=== PATIENT | female | born 1960 | race Caucasian/White ===

== ENCOUNTER 2019-01-09 13:09 | Inpatient (IN) | payer BC ==
[~2019-01-09] VITALS: Ht 160 cm; Wt 96.6 kg
[2019-01-09 13:28] VITALS: BP 127/72
[2019-01-09 14:40] LABS: BASOPHILS % (AUTO) 0.4 % (0.0-2.0); EOSINOPHILS # (AUTO) 0.1 K/uL (0-0.4); EOSINOPHILS % (AUTO) 0.9 % (0.0-4.0); HEMOGLOBIN 10.9 g/dL (12.0-16.0); LYMPHOCYTES # (AUTO) 0.7 K/uL (2.5-16.5); LYMPHOCYTES % (AUTO) 12.5 % (20.5-51.1); MEAN CORPUSCULAR HEMOGLOBIN 41 pg (27-31); MEAN CORPUSCULAR HGB CONC 34 g/dL (33-37); MEAN CORPUSCULAR VOLUME 118.8 fL (80-94); MONOCYTES # (AUTO) 0.7 K/uL (0.8-1.0); MONOCYTES % (AUTO) 12.3 % (1.7-9.3); NEUTROPHILS # (AUTO) 4.4 K/uL (1.8-7.7); NEUTROPHILS % (AUTO) 73.9 % (42.2-75.2); PLATELET COUNT (AUTO) 104 K/uL (140-450); RED CELL DISTRIBUTION WIDTH 15.6 % (11.6-13.7)
[2019-01-09 14:54] LABS: PROTHROMBIN TIME 20.9 secs (10.8-13.4)
[2019-01-09 15:01] LABS: ALBUMIN 1.6 g/dL (3.4-5.0); ANION GAP 15.3 (8-16); CARBON DIOXIDE 25.2 mmol/L (21-32); CREATININE 2.1 mg/dL (0.6-1.3); POTASSIUM 4.5 mmol/L (3.5-5.1); TOTAL BILIRUBIN 9.4 mg/dL (0.0-1.0)
[2019-01-09] MEDS ORDERED: NACL 0.9% 1,000 ML IV ONE (15:50)
[2019-01-09] MEDS ORDERED: LORazepam 2 MG/ML VIAL IVP ONE (18:55)
[2019-01-09] MEDS ORDERED: SPIRONOLACTONE 50 MG TAB PO ONE (19:10)
[2019-01-09] MEDS ORDERED: MULTIVITAMIN-12 10 ML, THIAMINE 100 MG, FOLIC ACID 1 MG, MAGNESIUM SULFATE 50% 2,000 MG... IV ONE ×5 (19:10)
[2019-01-09] MEDS ORDERED: FUROSEMIDE 40 MG/4 ML VIAL IVP ONE (19:10)
[2019-01-09 19:30] VITALS: BP 132/51
[2019-01-09 20:19] LABS: FREE T4 (FREE THYROXINE) 2.2 ng/dL (0.76-1.46); PHOSPHORUS 5.2 mg/dL (2.5-4.9); THYROID STIMULATING HORMONE 6.19 uIU/mL (0.34-3.74)
[2019-01-09] MEDS: DOCUSATE SODIUM 100 MG GELCAP PO SCH (20:36)
[2019-01-09] MEDS ORDERED: LORazepam 1 MG TAB PO SCH (22:15)
[2019-01-09] MEDS ORDERED: FOLIC ACID 1 MG TAB PO SCH (22:15)
[2019-01-09 22:49] LABS: APPEARANCE,URINE SL CLOUDY (CLEAR); BILIRUBIN,URINE 2+ (NEGATIVE); BLOOD, URINE TRACE-L (NEGATIVE); COLOR,URINE BROWN (YELLOW); LEUKOCYTE ESTERASE ,URINE TRACE (NEGATIVE); NITRITE, URINE NEGATIVE (NEGATIVE); PH,URINE 5.5 (5.0-9.0); UGLUCOSE NEGATIVE (NEGATIVE)
[2019-01-09 22:59] LABS: BARBITURATE, URINE NEG. ng/ml (NEG <=200); BENZODIAZEPINE, URINE NEG. ng/mL (NEG <=200); CANNABINOID, URINE NEG. ng/mL (NEG <=50); COCAINE, URINE NEG. ng/mL (NEG <=300); OPIATE, URINE NEG. ng/mL (NEG <=2000); PHENCYCLIDINE SCREEN,URINE NEG. ng/mL (NEG <=25)
[2019-01-09 23:27] LABS: RBC,URINE 0-5 /HPF (0-5)
[2019-01-09 23:28] LABS: COARSE GRANULAR CASTS,URINE 0-10 /LPF (None Seen); HYALINE CASTS, URINE 0-10 /LPF (None Seen)
[2019-01-09 23:29] LABS: ACETAMINOPHEN < 0.5 ug/ml (10-30); SALICYLATE < 2.8 mg/dL (2.8-20.0)
[2019-01-10] VITALS: BP 110/62
[2019-01-10] MEDS ORDERED: METHOCARBAMOL 500 MG TAB PO ONE (01:05)
[2019-01-10] MEDS ORDERED: CAPSAICIN 0.025% CRE 60 GM TUBE TP ONE (01:05)
[2019-01-10 04:00] VITALS: BP 128/44
[2019-01-10] MEDS ORDERED: LORazepam 1 MG TAB PO SCH (05:00)
[2019-01-10 07:23] LABS: BASOPHILS % (AUTO) 0.5 % (0.0-2.0); EOSINOPHILS # (AUTO) 0.1 K/uL (0-0.4); EOSINOPHILS % (AUTO) 2.3 % (0.0-4.0); HEMATOCRIT 30.5 % (36-48); HEMOGLOBIN 10.5 g/dL (12.0-16.0); LYMPHOCYTES # (AUTO) 0.9 K/uL (2.5-16.5); LYMPHOCYTES % (AUTO) 15.9 % (20.5-51.1); MEAN CORPUSCULAR HEMOGLOBIN 41 pg (27-31); MEAN CORPUSCULAR HGB CONC 34 g/dL (33-37); MEAN CORPUSCULAR VOLUME 118.9 fL (80-94); MONOCYTES # (AUTO) 0.7 K/uL (0.8-1.0); MONOCYTES % (AUTO) 13.5 % (1.7-9.3); NEUTROPHILS # (AUTO) 3.6 K/uL (1.8-7.7); NEUTROPHILS % (AUTO) 67.8 % (42.2-75.2); PLATELET COUNT (AUTO) 90 K/uL (140-450); RED BLOOD CELL COUNT(AUTO) 2.56 MIL/uL (4.20-5.40); RED CELL DISTRIBUTION WIDTH 15.7 % (11.6-13.7); WHITE BLOOD COUNT (AUTO) 5.4 K/uL (4.8-10.8)
[2019-01-10 07:46] LABS: ALBUMIN 1.5 g/dL (3.4-5.0); ANION GAP 14.6 (8-16); POTASSIUM 4.6 mmol/L (3.5-5.1); TOTAL BILIRUBIN 9.6 mg/dL (0.0-1.0)
[2019-01-10 08:15] VITALS: BP 94/58
[2019-01-10 08:20] LABS: MAGNESIUM 2.1 mg/dL (1.8-2.4); PHOSPHORUS 5.3 mg/dL (2.5-4.9)
[2019-01-10 09:34] LABS: CHOL/HDL RATIO 4.8 (1-4.5)
[2019-01-10] MEDS: FOLIC ACID 1 MG TAB PO SCH (10:02)
[2019-01-10] MEDS: DOCUSATE SODIUM 100 MG GELCAP PO SCH ×2 (10:02→21:11)
[2019-01-10] MEDS: MULTIVITAMIN 1 TAB PO SCH (10:03)
[2019-01-10] MEDS ORDERED: THIAMINE 100 MG TAB PO SCH (10:30)
[2019-01-10] MEDS ORDERED: ALBUMIN HUMAN 25% 100 ML IV SCH (12:15)
[2019-01-10 12:25] VITALS: BP 96/58
[2019-01-10] MEDS ORDERED: PHYTONADIONE 10 MG in NACL 0.9% 50 ML IV SCH (12:30)
[2019-01-10] MEDS ORDERED: FUROSEMIDE 20 MG/2 ML VIAL IVP SCH (13:00)
[2019-01-10] MEDS ORDERED: LORazepam 2 MG/ML VIAL IM/IVP PRN (14:00)
[2019-01-10] MEDS ORDERED: CALCIUM ACETATE 667 MG TAB PO SCH (14:00)
[2019-01-10 16:34] VITALS: BP 93/37
[2019-01-10 20:00] VITALS: BP 104/47
[2019-01-10] MEDS ORDERED: ALBUMIN HUMAN 25% 100 ML IV ONE (22:02)
[2019-01-11] VITALS: BP 108/49
[2019-01-11] MEDS: OCTREOTIDE ACETATE 1.25 MG in NACL 0.9% 250 ML IV SCH ×2 (00:28→15:06)
[2019-01-11] MEDS ORDERED: MORPHINE SULFATE 2 MG/ML SYR IVP PRN (02:55)
[2019-01-11] MEDS ORDERED: MORPHINE SULFATE 2 MG/ML SYR ONE (03:08)
[2019-01-11 04:00] VITALS: BP 103/57
[2019-01-11 08:25] VITALS: BP 114/62
[2019-01-11] MEDS ORDERED: PANTOPRAZOLE 40 MG TABEC PO SCH (09:00)
[2019-01-11] MEDS: THIAMINE 100 MG TAB PO SCH (09:05)
[2019-01-11] MEDS: MULTIVITAMIN 1 TAB PO SCH (09:05)
[2019-01-11] MEDS: DOCUSATE SODIUM 100 MG GELCAP PO SCH (09:05)
[2019-01-11] MEDS: FOLIC ACID 1 MG TAB PO SCH (09:06)
[2019-01-11 12:30] VITALS: BP 106/74
[2019-01-11 13:23] LABS: BASOPHILS % (AUTO) 0.6 % (0.0-2.0); EOSINOPHILS # (AUTO) 0.1 K/uL (0-0.4); EOSINOPHILS % (AUTO) 2.4 % (0.0-4.0); HEMATOCRIT 33.1 % (36-48); HEMOGLOBIN 11.3 g/dL (12.0-16.0); LYMPHOCYTES # (AUTO) 0.8 K/uL (2.5-16.5); LYMPHOCYTES % (AUTO) 17.6 % (20.5-51.1); MEAN CORPUSCULAR HEMOGLOBIN 41 pg (27-31); MEAN CORPUSCULAR HGB CONC 34 g/dL (33-37); MEAN CORPUSCULAR VOLUME 119.9 fL (80-94); MONOCYTES # (AUTO) 0.5 K/uL (0.8-1.0); MONOCYTES % (AUTO) 11.5 % (1.7-9.3); NEUTROPHILS # (AUTO) 2.9 K/uL (1.8-7.7); NEUTROPHILS % (AUTO) 67.9 % (42.2-75.2); PLATELET COUNT (AUTO) 84 K/uL (140-450); RED BLOOD CELL COUNT(AUTO) 2.76 MIL/uL (4.20-5.40); RED CELL DISTRIBUTION WIDTH 15.7 % (11.6-13.7); WHITE BLOOD COUNT (AUTO) 4.3 K/uL (4.8-10.8)
[2019-01-11 13:37] LABS: PROTHROMBIN TIME 20.9 secs (10.8-13.4)
[2019-01-11 13:50] LABS: ALBUMIN 1.9 g/dL (3.4-5.0); ANION GAP 14.9 (8-16); CARBON DIOXIDE 22.9 mmol/L (21-32); CREATININE 1.7 mg/dL (0.6-1.3); PHOSPHORUS 5.2 mg/dL (2.5-4.9); POTASSIUM 4.8 mmol/L (3.5-5.1); TOTAL BILIRUBIN 11.7 mg/dL (0.0-1.0)
[2019-01-11] MEDS ORDERED: FUROSEMIDE 20 MG/2 ML VIAL IVP SCH (14:04)
[2019-01-11] MEDS ORDERED: LACTULOSE 20 GM/30 ML UDC PO SCH (14:04)
[2019-01-11 16:35] VITALS: BP 109/55
[2019-01-11] MEDS ORDERED: ALBUMIN HUMAN 25% 100 ML IV ONE (18:45)
[2019-01-11 20:00] VITALS: BP 118/58
[2019-01-11] MEDS ORDERED: PANTOPRAZOLE 40 MG INJ VIAL IVP SCH (21:00)
[2019-01-12] VITALS: BP 120/59
[2019-01-12] MEDS: MORPHINE SULFATE 2 MG/ML SYR IVP PRN ×2 (02:55→17:04)
[2019-01-12 04:00] VITALS: BP 122/68
[2019-01-12] MEDS: LANSOPRAZOLE 30 MG CAPDR PO SCH (05:41)
[2019-01-12 08:00] VITALS: BP 128/66
[2019-01-12] MEDS ORDERED: CALCIUM ACETATE 667 MG TAB PO SCH (08:00)
[2019-01-12 08:23] LABS: BASOPHILS % (AUTO) 0.7 % (0.0-2.0); EOSINOPHILS # (AUTO) 0.1 K/uL (0-0.4); EOSINOPHILS % (AUTO) 2.8 % (0.0-4.0); HEMATOCRIT 25.1 % (36-48); HEMOGLOBIN 8.7 g/dL (12.0-16.0); LYMPHOCYTES # (AUTO) 0.9 K/uL (2.5-16.5); LYMPHOCYTES % (AUTO) 17.8 % (20.5-51.1); MEAN CORPUSCULAR HEMOGLOBIN 41 pg (27-31); MEAN CORPUSCULAR HGB CONC 35 g/dL (33-37); MEAN CORPUSCULAR VOLUME 119.2 fL (80-94); MONOCYTES # (AUTO) 0.8 K/uL (0.8-1.0); MONOCYTES % (AUTO) 14.7 % (1.7-9.3); NEUTROPHILS # (AUTO) 3.3 K/uL (1.8-7.7); PLATELET COUNT (AUTO) 82 K/uL (140-450); RED CELL DISTRIBUTION WIDTH 15.1 % (11.6-13.7); WHITE BLOOD COUNT (AUTO) 5.1 K/uL (4.8-10.8)
[2019-01-12 08:41] LABS: TRANSFERRIN 115 mg/dL (200-370)
[2019-01-12 08:45] LABS: PROTHROMBIN TIME 22.3 secs (10.8-13.4)
[2019-01-12 08:50] LABS: MAGNESIUM 1.9 mg/dL (1.8-2.4); PHOSPHORUS 4.7 mg/dL (2.5-4.9)
[2019-01-12 08:57] LABS: ANION GAP 15.7 (8-16); CARBON DIOXIDE 23.8 mmol/L (21-32); CREATININE 1.4 mg/dL (0.6-1.3); POTASSIUM 4.5 mmol/L (3.5-5.1)
[2019-01-12] MEDS: THIAMINE 100 MG TAB PO SCH (09:00)
[2019-01-12] MEDS: MULTIVITAMIN 1 TAB PO SCH (09:00)
[2019-01-12] MEDS: FOLIC ACID 1 MG TAB PO SCH (09:00)
[2019-01-12] MEDS ORDERED: FUROSEMIDE 40 MG/4 ML VIAL IVP SCH (09:00)
[2019-01-12] MEDS: LACTULOSE 20 GM/30 ML UDC PO SCH (09:00)
[2019-01-12 09:42] LABS: FERRITIN 960 ng/mL (15 - 150)
[2019-01-12] MEDS ORDERED: diphenhydrAMINE 50 MG/ML VIAL IVP SCH (10:30)
[2019-01-12] MEDS ORDERED: ACETAMINOPHEN 650 MG/20.3 ML UDC PO SCH (10:30)
[2019-01-12 12:00] VITALS: BP 111/48
[2019-01-12 15:20] LABS: PROTHROMBIN TIME 22.1 secs (10.8-13.4)
[2019-01-12 16:00] VITALS: BP 96/49
[2019-01-12] MEDS: ONDANSETRON 4 MG/2 ML VIAL IVP PRN (16:44)
[2019-01-12] MEDS ORDERED: OCTREOTIDE ACETATE 1.25 MG in NACL 0.9% 250 ML IV SCH (18:30)
[2019-01-12] MEDS ORDERED: PHYTONADIONE 10 MG in NACL 0.9% 50 ML IV SCH (18:30)
[2019-01-12 19:19] LABS: HEMATOCRIT 24.4 % (36-48); HEMOGLOBIN 8.4 g/dL (12.0-16.0)
[2019-01-12 20:40] VITALS: BP 118/58
[2019-01-13 00:40] VITALS: BP 110/60
[2019-01-13 04:50] VITALS: BP 128/73
[2019-01-13] MEDS: MORPHINE SULFATE 2 MG/ML SYR IVP PRN ×2 (05:07→19:52)
[2019-01-13] MEDS: LANSOPRAZOLE 30 MG CAPDR PO SCH (06:09)
[2019-01-13 08:00] VITALS: BP 117/68
[2019-01-13] MEDS: FOLIC ACID 1 MG TAB PO SCH (09:07)
[2019-01-13] MEDS: LACTULOSE 20 GM/30 ML UDC PO SCH ×2 (09:07→20:10)
[2019-01-13] MEDS: THIAMINE 100 MG TAB PO SCH (09:07)
[2019-01-13] MEDS: MULTIVITAMIN 1 TAB PO SCH (09:07)
[2019-01-13 09:22] LABS: BASOPHILS % (AUTO) 0.3 % (0.0-2.0); EOSINOPHILS # (AUTO) 0.1 K/uL (0-0.4); EOSINOPHILS % (AUTO) 2.2 % (0.0-4.0); HEMATOCRIT 27.5 % (36-48); HEMOGLOBIN 9.5 g/dL (12.0-16.0); LYMPHOCYTES # (AUTO) 0.6 K/uL (2.5-16.5); LYMPHOCYTES % (AUTO) 13.2 % (20.5-51.1); MEAN CORPUSCULAR HEMOGLOBIN 41 pg (27-31); MEAN CORPUSCULAR HGB CONC 35 g/dL (33-37); MEAN CORPUSCULAR VOLUME 118.6 fL (80-94); MONOCYTES # (AUTO) 0.7 K/uL (0.8-1.0); MONOCYTES % (AUTO) 14.1 % (1.7-9.3); NEUTROPHILS # (AUTO) 3.4 K/uL (1.8-7.7); NEUTROPHILS % (AUTO) 70.2 % (42.2-75.2); PLATELET COUNT (AUTO) 77 K/uL (140-450); RED BLOOD CELL COUNT(AUTO) 2.32 MIL/uL (4.20-5.40); RED CELL DISTRIBUTION WIDTH 15.2 % (11.6-13.7); WHITE BLOOD COUNT (AUTO) 4.9 K/uL (4.8-10.8)
[2019-01-13 09:55] LABS: PROTHROMBIN TIME 20.6 secs (10.8-13.4)
[2019-01-13 11:44] LABS: ANION GAP 11.5 (8-16); CARBON DIOXIDE 25.8 mmol/L (21-32); POTASSIUM 4.3 mmol/L (3.5-5.1)
[2019-01-13 11:45] LABS: CREATININE 1.4 mg/dL (0.6-1.3); TOTAL BILIRUBIN 10.8 mg/dL (0.0-1.0)
[2019-01-13 11:46] LABS: ALBUMIN 1.8 g/dL (3.4-5.0); MAGNESIUM 1.7 mg/dL (1.8-2.4)
[2019-01-13 12:00] VITALS: BP 116/63
[2019-01-13] MEDS ORDERED: diphenhydrAMINE 50 MG/ML VIAL ONE (13:51)
[2019-01-13] MEDS ORDERED: MIDAZOLAM 2 MG/2 ML VIAL ONE (13:51)
[2019-01-13] MEDS ORDERED: fentaNYL 0.05 MG/ML VIAL ONE (13:51)
[2019-01-13] MEDS ORDERED: fentaNYL 0.05 MG/ML VIAL IVP ONE (14:20)
[2019-01-13] MEDS ORDERED: MIDAZOLAM 2 MG/2 ML VIAL IVP ONE (14:20)
[2019-01-13] MEDS ORDERED: FUROSEMIDE 40 MG/4 ML VIAL IVP SCH (14:39)
[2019-01-13] MEDS ORDERED: PHYTONADIONE 10 MG/ML AMP SUBQ SCH (15:00)
[2019-01-13 16:00] VITALS: BP 118/63
[2019-01-13] MEDS: METOCLOPRAMIDE 10 MG TAB PO SCH (17:27)
[2019-01-13] MEDS: ONDANSETRON 4 MG/2 ML VIAL IVP PRN (19:51)
[2019-01-13 20:00] VITALS: BP 126/73
[2019-01-13] MEDS ORDERED: MAGNESIUM OXIDE 400 MG TAB PO ONE (21:00)
[2019-01-14] VITALS: BP 106/55
[2019-01-14 00:10] LABS: FOLIC ACID 7.4 ng/mL (>3.0); HEPATITIS A ANTIBODY IGM Negative (Negative); HEPATITIS B CORE AB TOTAL Negative (Negative); HEPATITIS B SURFACE ANTIBODY Non Reactive (.); HEPATITIS B SURFACE ANTIGEN Negative (Negative)
[2019-01-14 04:00] VITALS: BP 125/75
[2019-01-14] MEDS: METOCLOPRAMIDE 10 MG TAB PO SCH ×3 (06:34→15:39)
[2019-01-14] MEDS: LANSOPRAZOLE 30 MG CAPDR PO SCH (06:34)
[2019-01-14 08:00] VITALS: BP 122/67
[2019-01-14] MEDS: FUROSEMIDE 40 MG/4 ML VIAL IVP SCH (08:55)
[2019-01-14] MEDS: LACTULOSE 20 GM/30 ML UDC PO SCH ×2 (08:55→20:44)
[2019-01-14] MEDS: THIAMINE 100 MG TAB PO SCH (08:56)
[2019-01-14] MEDS: FOLIC ACID 1 MG TAB PO SCH (08:56)
[2019-01-14] MEDS: MULTIVITAMIN 1 TAB PO SCH (08:56)
[2019-01-14] MEDS: SPIRONOLACTONE 50 MG TAB PO SCH (08:56)
[2019-01-14] MEDS ORDERED: ONDA2SOL45 IVP (09:25)
[2019-01-14] MEDS ORDERED: LANS30EC68 PO (09:25)
[2019-01-14] MEDS ORDERED: MULT-405 PO (09:25)
[2019-01-14] MEDS ORDERED: LACT10SO11 PO (09:25)
[2019-01-14] MEDS ORDERED: THIA-34 PO (09:25)
[2019-01-14] MEDS ORDERED: SPIR50TA PO (09:25)
[2019-01-14] MEDS ORDERED: LAS20I IVP (09:25)
[2019-01-14] MEDS ORDERED: METO10TA98 PO (09:25)
[2019-01-14] MEDS ORDERED: FOLI1TAB90 PO (09:25)
[2019-01-14 10:41] LABS: PROTHROMBIN TIME 20.2 secs (10.8-13.4)
[2019-01-14 10:47] LABS: ANION GAP 13.1 (8-16); CREATININE 1.3 mg/dL (0.6-1.3); POTASSIUM 4.1 mmol/L (3.5-5.1)
[2019-01-14 11:02] LABS: BASOPHILS % (AUTO) 0.4 % (0.0-2.0); EOSINOPHILS # (AUTO) 0.1 K/uL (0-0.4); HEMATOCRIT 27.4 % (36-48); HEMOGLOBIN 9.5 g/dL (12.0-16.0); LYMPHOCYTES # (AUTO) 0.7 K/uL (2.5-16.5); LYMPHOCYTES % (AUTO) 11.6 % (20.5-51.1); MEAN CORPUSCULAR HEMOGLOBIN 41 pg (27-31); MEAN CORPUSCULAR HGB CONC 35 g/dL (33-37); MEAN CORPUSCULAR VOLUME 118.8 fL (80-94); MONOCYTES # (AUTO) 0.9 K/uL (0.8-1.0); NEUTROPHILS # (AUTO) 4.6 K/uL (1.8-7.7); PLATELET COUNT (AUTO) 81 K/uL (140-450); RED BLOOD CELL COUNT(AUTO) 2.31 MIL/uL (4.20-5.40); RED CELL DISTRIBUTION WIDTH 14.8 % (11.6-13.7); WHITE BLOOD COUNT (AUTO) 6.3 K/uL (4.8-10.8)
[2019-01-14 12:00] VITALS: BP 129/76
[2019-01-14] MEDS ORDERED: predniSONE 20 MG TAB PO SCH (12:00)
[2019-01-14] MEDS: PENTOXIFYLLINE 400 MG TABER PO SCH ×2 (12:15→17:02)
[2019-01-14] MEDS: MORPHINE SULFATE 2 MG/ML SYR IVP PRN ×2 (15:41→22:54)
[2019-01-14 16:00] VITALS: BP 134/71
[2019-01-14 16:02] LABS: MAGNESIUM 1.9 mg/dL (1.8-2.4); PHOSPHORUS 4.3 mg/dL (2.5-4.9)
[2019-01-14 20:00] VITALS: BP_SYST 124; BP_DIAS 64; BP_DIAS 70
[2019-01-14] MEDS: predniSONE 20 MG TAB PO SCH (20:39)
[2019-01-15] VITALS: BP 124/64
[2019-01-15 04:00] VITALS: BP 130/75
[2019-01-15] MEDS: MORPHINE SULFATE 2 MG/ML SYR IVP PRN ×3 (05:19→22:03)
[2019-01-15] MEDS: LANSOPRAZOLE 30 MG CAPDR PO SCH (06:18)
[2019-01-15 08:00] VITALS: BP 139/74
[2019-01-15] MEDS: PENTOXIFYLLINE 400 MG TABER PO SCH ×3 (08:00→16:09)
[2019-01-15] MEDS: FUROSEMIDE 40 MG/4 ML VIAL IVP SCH (08:34)
[2019-01-15] MEDS: METOCLOPRAMIDE 10 MG TAB PO SCH ×3 (08:35→16:09)
[2019-01-15] MEDS: SPIRONOLACTONE 50 MG TAB PO SCH (08:35)
[2019-01-15] MEDS: predniSONE 20 MG TAB PO SCH ×2 (08:36→20:51)
[2019-01-15] MEDS: LACTULOSE 20 GM/30 ML UDC PO SCH (09:00)
[2019-01-15] MEDS: FOLIC ACID 1 MG TAB PO SCH (09:00)
[2019-01-15] MEDS: LACTOBACILLUS RHAMNOSUS GG 1 EACH CAP PO SCH (09:00)
[2019-01-15] MEDS: THIAMINE 100 MG TAB PO SCH (09:00)
[2019-01-15] MEDS: MULTIVITAMIN 1 TAB PO SCH (09:00)
[2019-01-15 12:00] VITALS: BP 141/75
[2019-01-15 12:04] LABS: BASOPHILS % (AUTO) 0.1 % (0.0-2.0); HEMATOCRIT 28.3 % (36-48); HEMOGLOBIN 9.7 g/dL (12.0-16.0); LYMPHOCYTES # (AUTO) 0.4 K/uL (2.5-16.5); MEAN CORPUSCULAR HEMOGLOBIN 41 pg (27-31); MEAN CORPUSCULAR HGB CONC 34 g/dL (33-37); MEAN CORPUSCULAR VOLUME 118.4 fL (80-94); MONOCYTES # (AUTO) 0.5 K/uL (0.8-1.0); MONOCYTES % (AUTO) 8.1 % (1.7-9.3); NEUTROPHILS # (AUTO) 5.7 K/uL (1.8-7.7); PLATELET COUNT (AUTO) 81 K/uL (140-450); RED BLOOD CELL COUNT(AUTO) 2.39 MIL/uL (4.20-5.40); RED CELL DISTRIBUTION WIDTH 14.9 % (11.6-13.7); WHITE BLOOD COUNT (AUTO) 6.7 K/uL (4.8-10.8)
[2019-01-15 12:17] LABS: ANION GAP 17.1 (8-16); CARBON DIOXIDE 24.9 mmol/L (21-32); CREATININE 1.3 mg/dL (0.6-1.3); MAGNESIUM 1.7 mg/dL (1.8-2.4); PHOSPHORUS 4.5 mg/dL (2.5-4.9); TOTAL BILIRUBIN 9.8 mg/dL (0.0-1.0)
[2019-01-15 12:33] LABS: PROTHROMBIN TIME 20.7 secs (10.8-13.4)
[2019-01-15 13:20] LABS: LYMPHOCYTES % (AUTO) 5.9 % (20.5-51.1); NEUTROPHILS % (AUTO) 85.9 % (42.2-75.2)
[2019-01-15] MEDS ORDERED: MAGNESIUM OXIDE 400 MG TAB PO ONE (14:35)
[2019-01-15] MEDS ORDERED: MAGNESIUM OXIDE 400 MG TAB PO SCH (15:00)
[2019-01-15 16:00] VITALS: BP 132/69
[2019-01-15 20:00] VITALS: BP 134/47
[2019-01-16] VITALS: BP 122/54
[2019-01-16] MEDS ORDERED: BACLOFEN 10 MG TAB PO PRN (03:20)
[2019-01-16 04:00] VITALS: BP 134/57
[2019-01-16] MEDS: MORPHINE SULFATE 2 MG/ML SYR IVP PRN (05:30)
[2019-01-16] MEDS: LANSOPRAZOLE 30 MG CAPDR PO SCH (06:43)
[2019-01-16] MEDS: METOCLOPRAMIDE 10 MG TAB PO SCH ×2 (06:43→11:27)
[2019-01-16 07:05] LABS: HEMATOCRIT 25.7 % (36-48); LYMPHOCYTES # (AUTO) 0.6 K/uL (2.5-16.5); LYMPHOCYTES % (AUTO) 7.5 % (20.5-51.1); MEAN CORPUSCULAR HEMOGLOBIN 41 pg (27-31); MEAN CORPUSCULAR HGB CONC 35 g/dL (33-37); MEAN CORPUSCULAR VOLUME 117.9 fL (80-94); MONOCYTES # (AUTO) 0.8 K/uL (0.8-1.0); MONOCYTES % (AUTO) 10.3 % (1.7-9.3); NEUTROPHILS # (AUTO) 6.5 K/uL (1.8-7.7); NEUTROPHILS % (AUTO) 82.2 % (42.2-75.2); PLATELET COUNT (AUTO) 78 K/uL (140-450); RED BLOOD CELL COUNT(AUTO) 2.18 MIL/uL (4.20-5.40); RED CELL DISTRIBUTION WIDTH 15.2 % (11.6-13.7); WHITE BLOOD COUNT (AUTO) 7.9 K/uL (4.8-10.8)
[2019-01-16 07:09] LABS: PROTHROMBIN TIME 21.1 secs (10.8-13.4)
[2019-01-16 07:34] LABS: ALBUMIN 1.8 g/dL (3.4-5.0); ANION GAP 12.4 (8-16); CARBON DIOXIDE 28.6 mmol/L (21-32); CREATININE 1.1 mg/dL (0.6-1.3); MAGNESIUM 1.6 mg/dL (1.8-2.4); PHOSPHORUS 4.1 mg/dL (2.5-4.9)
[2019-01-16 08:00] VITALS: BP 136/76
[2019-01-16] MEDS: PENTOXIFYLLINE 400 MG TABER PO SCH ×2 (08:00→11:33)
[2019-01-16] MEDS ORDERED: LACTULOSE 20 GM/30 ML UDC PO SCH ×2 (09:00→13:00)
[2019-01-16] MEDS: predniSONE 20 MG TAB PO SCH (09:00)
[2019-01-16] MEDS: SPIRONOLACTONE 50 MG TAB PO SCH (09:00)
[2019-01-16] MEDS: LACTOBACILLUS RHAMNOSUS GG 1 EACH CAP PO SCH (09:05)
[2019-01-16] MEDS: MULTIVITAMIN 1 TAB PO SCH (09:05)
[2019-01-16] MEDS: FOLIC ACID 1 MG TAB PO SCH (09:06)
[2019-01-16] MEDS: THIAMINE 100 MG TAB PO SCH (09:06)
[2019-01-16] MEDS: FUROSEMIDE 40 MG/4 ML VIAL IVP SCH (09:07)
[2019-01-16 12:00] VITALS: BP 131/64
[2019-01-16] MEDS ORDERED: FUROSEMIDE 20 MG/2 ML VIAL IVP SCH (13:00)
[2019-01-16] MEDS ORDERED: RIFA550T PO (15:24)
[2019-01-16] MEDS ORDERED: LAS20I IVP (15:24)
[2019-01-16] MEDS ORDERED: LACT10CA PO (15:24)
[2019-01-16] MEDS ORDERED: LACT10SO11 PO (15:24)
[2019-01-16] MEDS ORDERED: PRE15L PO (15:24)
[2019-01-16 16:00] VITALS: BP 108/59
[2019-01-16] MEDS ORDERED: RIFAXIMIN 550 MG TAB PO SCH (21:00)
[2019-01-17] MEDS ORDERED: prednisoLONE 15 MG/5 ML UDC PO SCH (09:00)
== END 2019-01-16 16:00 | disposition short-term general hospital (02) | DRG 441 ==
LOC: MED 13:09 → MTU 19:01
PROVIDERS: ADMIT General Practice; ATTEND General Practice
PROC: 30233K1 Transfusion of Nonautologous Frozen Plasma into Peripheral Vein, Percutaneous Approach (ICD-10-PCS; 2019-01-12)
PROC: 0DJ08ZZ Inspection of Upper Intestinal Tract, Via Natural or Artificial Opening Endoscopic (ICD-10-PCS; principal; 2019-01-13 19:50)
DX: K72.00 Acute and subacute hepatic failure without coma (principal); N17.0 Acute kidney failure with tubular necrosis; E43 Unspecified severe protein-calorie malnutrition; K76.7 Hepatorenal syndrome; E87.1 Hypo-osmolality and hyponatremia; D68.9 Coagulation defect, unspecified; D61.818 Other pancytopenia; I85.00 Esophageal varices without bleeding; R18.8 Other ascites; K76.6 Portal hypertension; N39.0 Urinary tract infection, site not specified; M71.20 Synovial cyst of popliteal space [Baker], unspecified knee; K70.9 Alcoholic liver disease, unspecified; E87.70 Fluid overload, unspecified; F41.9 Anxiety disorder, unspecified; K70.30 Alcoholic cirrhosis of liver without ascites; N18.9 Chronic kidney disease, unspecified; I12.9 Hypertensive chronic kidney disease with stage 1 through stage 4 chronic kidney disease, or unspecified chronic kidney disease; K80.20 Calculus of gallbladder without cholecystitis without obstruction; E83.39 Other disorders of phosphorus metabolism; F10.20 Alcohol dependence, uncomplicated; D53.9 Nutritional anemia, unspecified; F32.9 Major depressive disorder, single episode, unspecified; E02 Subclinical iodine-deficiency hypothyroidism; Z79.899 Other long term (current) drug therapy; Z68.37 Body mass index [BMI] 37.0-37.9, adult; Z88.5 Allergy status to narcotic agent; Z90.49 Acquired absence of other specified parts of digestive tract; Z91.81 History of falling; Z81.8 Family history of other mental and behavioral disorders
CPT/HCPCS: 36415; 71045; 76705; 80048; 80053; 80305; 81001; 82140; 82150; 82272; 82607; 82728; 82746; 83036; 83540; 83690; 83735; 83880; 84100; 84439; 84443; 84484; 85014; 85018; 85025; 85045; 85610; 85730; 86704; 86706; 86708; 86709; 86803; 86886; 86900; 86901; 86920; 87040; 87081; 87086; 87340; 93005; 96360; 97116; 97161-GP; 97530; 99285; A9153; G0480; J0696; J1200; J1940; J2060; J2250; J2270; J2354; J2405; J3010; J3411; J3430; J3475; J3490; J7030; J7060; J7512; J8597; P9017; P9046; Q0092

== ENCOUNTER 2019-01-25 22:24 | Emergency (ER) | payer BC ==
[~2019-01-25] VITALS: Ht 162.6 cm; Wt 80.7 kg
[2019-01-25 22:55] VITALS: BP 117/83
--- NOTE | 2019-01-25 22:57 | NUR ---
[facility]ICA[facility]A PD WITH PATIENT
--- NOTE | 2019-01-25 23:11 | NUR ---
PT WHEELCHAIRED TO ER BED 01
--- NOTE | 2019-01-25 23:15 | NUR ---
58Y FEMALE, BIB FRIEND AND TO ED. PT STATED "I DONT WANT TO STAY WITH HIM". PER FRIEND/ REPORT, PT HAS END STAGE LIVER DISEASE ON HOSPICE AND HAS BEEN HAVING ALTERED MENTAL STATUS FOR SEVERAL DAYS. PT HAS JAUNDICE, ABDOMEN DISTENDED, BLE WITH PITTING EDEMA +4. PT DENIES ANY PAIN AT THIS TIME. PT AWAKE AND ALERT TO NAME, PLACE AND DATE, RR EVEN UNLABORED, GCS 15. EDMD MADE AWARE. WILL CONTINUE TO MONITOR CLOSELY. BED LOCKED IN LOWEST POSITION, SIDERAILS UP X2. PMH-- END STAGE LIVER DISEASE
[2019-01-26 00:31] LABS: EOSINOPHILS # (AUTO) 0.1 K/uL (0-0.4); LYMPHOCYTES % (AUTO) 13.3 % (20.5-51.1); NEUTROPHILS # (AUTO) 5.2 K/uL (1.8-7.7); RED BLOOD CELL COUNT(AUTO) 1.85 MIL/uL (4.20-5.40)
[2019-01-26 00:37] LABS: BASOPHILS % (AUTO) 0.3 % (0.0-2.0); EOSINOPHILS % (AUTO) 0.9 % (0.0-4.0); MEAN CORPUSCULAR HEMOGLOBIN 42 pg (27-31); MEAN CORPUSCULAR HGB CONC 35 g/dL (33-37); MEAN CORPUSCULAR VOLUME 118.8 fL (80-94); MONOCYTES # (AUTO) 1.1 K/uL (0.8-1.0); MONOCYTES % (AUTO) 14.4 % (1.7-9.3); NEUTROPHILS % (AUTO) 71.1 % (42.2-75.2); PLATELET COUNT (AUTO) 89 K/uL (140-450); RED CELL DISTRIBUTION WIDTH 15.9 % (11.6-13.7); WHITE BLOOD COUNT (AUTO) 7.4 K/uL (4.8-10.8)
[2019-01-26] MEDS ORDERED: LORazepam 2 MG/ML VIAL IVP ONE ×2 (00:45→02:05)
[2019-01-26 00:50] LABS: ANION GAP 13.7 (8-16); CARBON DIOXIDE 26.6 mmol/L (21-32); CHLORIDE 99 mmol/L (98-107); GFR ARICAN-AMERICAN 73 mL/min (>90); GLUCOSE 64 mg/dL (74-106); POTASSIUM 4.3 mmol/L (3.5-5.1); SODIUM SERUM 135 mmol/L (136-145); UREA NITROGEN, BLOOD 9 mg/dL (7-18)
[2019-01-26 00:52] LABS: TOTAL BILIRUBIN 8.8 mg/dL (0.0-1.0)
[2019-01-26 00:53] LABS: ACETAMINOPHEN < 0.5 ug/ml (10-30); ALBUMIN 2.4 g/dL (3.4-5.0); ASPARTATE AMINOTRANSFERASE 81 U/L (15-37); SALICYLATE < 2.8 mg/dL (2.8-20.0)
--- NOTE | 2019-01-26 01:01 | NUR ---
PT IN BED, ATTEMPTING TO REMOVE IV TUBE, REORIENTATION PROVIDED, PT VSS AT THIS TIME. WILL CONTINUE TO MONITOR CLOSELY.
[2019-01-26 01:45] LABS: HEMOGLOBIN 7.7 g/dL (12.0-16.0)
--- NOTE | 2019-01-26 02:42 | NUR ---
PT RETURN FROM CT
--- NOTE | 2019-01-26 03:08 | NUR ---
PT IN BED ASLEEP EASY TO AROUSE, RESPONSIVE TO VERBAL AND TACTILE STIMULI, STILL WITH CONFUSION. VSS AT THIS TIME WILL CONTINUE TO MONITOR CLOSELY.
[2019-01-26 04:57] LABS: BARBITURATE, URINE NEGATIVE ng/ml (NEG <=200); BENZODIAZEPINE, URINE NEGATIVE ng/mL (NEG <=200); CANNABINOID, URINE NEGATIVE ng/mL (NEG <=50); COCAINE, URINE NEGATIVE ng/mL (NEG <=300); OPIATE, URINE POSITIVE ng/mL (NEG <=2000); PHENCYCLIDINE SCREEN,URINE NEGATIVE ng/mL (NEG <=25)
--- NOTE | 2019-01-26 05:00 | NUR ---
PT IN BED ASLEEP, EASY TO AROUSE, RR EVEN UNLABORED, NO C/O PAIN OR DISCOMFORT AT THIS TIME, VSS. WILL CONTINUE TO MONITOR CLOSELY. BED LOCKED IN LOWEST POSITION, SIDERAILS UPX2.
[2019-01-26] MEDS ORDERED: DEXTROSE 50% 50 ML SYR IVP ONE ×2 (06:50→09:30)
[2019-01-26] MEDS ORDERED: THIAMINE 200 MG/2 ML VIAL IM ONE (06:50)
[2019-01-26] MEDS ORDERED: THIAMINE 200 MG/2 ML VIAL IV ONE (06:55)
[2019-01-26 07:05] LABS: APPEARANCE,URINE SL CLOUDY (CLEAR); BILIRUBIN,URINE 2+ (NEGATIVE); BLOOD, URINE 1+ (NEGATIVE); COLOR,URINE BROWN (YELLOW); LEUKOCYTE ESTERASE ,URINE NEGATIVE (NEGATIVE); NITRITE, URINE NEGATIVE (NEGATIVE); PH,URINE 5.5 (5.0-9.0); UGLUCOSE TRACE (NEGATIVE)
--- NOTE | 2019-01-26 07:23 | NUR ---
ENDORSEMENT OF CARE REPORT GIVEN TO LEFTY MARTIN.
--- NOTE | 2019-01-26 07:31 | NUR ---
CHECKED ON PT. CONNECTED TO MONITOR. SLEEPING AT THIS TIME. SIDE RAILS UPX2, BED AT THE LOWEST POSITION. WILL CONTINUE TO MONITOR PT.
[2019-01-26 07:38] LABS: WBC,URINE 0-5 /HPF (0-5)
[2019-01-26 07:39] LABS: FINE GRANULAR CASTS,URINE 0-3 /LPF (None Seen); URINE AMORPHOUS URATE 1+ /HPF (None Seen)
--- NOTE | 2019-01-26 08:37 | NUR ---
CHECKED ON PT. PROVIDED WARM BLANKET TO PT. ASKED IF SHE WANTS BREAKFAST OR WATER, DID NOT COMMUNICTAE BACK. WENT BACK TO SLEEP. SIDE RAILS UP, BED AT LOWER POSITION. NO DISTRESS NOTED. PT HAS YELLOW SCLERA , BLE PITTING EDEMA WITH DISTENDED STOMACH. NO FACIAL GRIMICING NOTED. EVEN AND NON-LABORED RESPIRATION. O2 SAT 98% ON RA. WILL CONTINUE TO MONITOR PT.
--- NOTE | 2019-01-26 08:56 | NUR ---
TALKED TO DAVID FROM [facility] AND UPDATED ON PT PRESENT STATUS. PT SLEEPING AT THIS TIME.
--- NOTE | 2019-01-26 09:25 | NUR ---
CHECKED ON PT. BS 61 AT THIS TIME. MADE AWARE. WILL PUT ORDER FOR THE MEDS. ASKED PT IF SHE WANTS TO DRINK OR EAT BREAKFAST. PT SLEEPY AT THIS TIME. WILL CONTINUE TO MONITOR PT.
--- NOTE | 2019-01-26 09:41 | NUR ---
PT ADMINISTERED DEXTROSE 50% IV PUSH. WILL REASSESS BLOOD SUGAR.
--- NOTE | 2019-01-26 09:48 | NUR ---
CALLED [facility] AND GAVE REPORT TO LEFTY OSCAR. INFORMED HIM OF BS AND ADMINISTERED DEXTROSE 50% IV PUSH. [facility] TO TRANSFER PT TO [facility].
--- NOTE | 2019-01-26 10:00 | NUR ---
PT DAUGHTER BETHANY AT THE BEDSIDE. INFORMED HER THAT PT IS TRANSFERED TO [facility] FOR HIGHER LEVEL OF CARE. ROS WITH IT. SIGNED THE PAPER WORK. PT SLIPPER TAKEN BY THE SISTER TO HOME.
--- NOTE | 2019-01-26 10:12 | NUR ---
GAVE REPORT TO [facility] PERSONNEL AT THE BEDSIDE. BS 134 AT THIS TIME. VS STABLE.
[2019-01-26 10:15] VITALS: BP 118/57
--- NOTE | 2019-01-26 10:15 | NUR ---
PT TRANSFERED TO [facility] BY BLS. LONI BRAUN. PT STABLE AT TIME OF DISCHARGE.
--- NOTE | 2019-01-26 10:15 | NUR ---
Patient to be transferred to [facility] ER. Is being transferred due to HIGHER LEVEL OF CARE. Receiving facility has accepting physician and available space. ER physician has signed transfer form. Patient or responsible green party has agreed to transfer and signed form. Patient belongings inventoried and will be sent with patient. Copy of nursing notes, lab reports, EKG, Physicians Orders and X-rays to be sent with patient. Report called to LEFTY OSCAR at receiving facility. [facility] service has been called for transfer. PT SINGLE PAIR OF SLIPPER, BLACK COLOR, SENT WITH FAMILY MEMBER SISTER.
== END 2019-01-26 10:15 | disposition short-term general hospital (02) ==
LOC: MED 22:24
DX: R41.0 Disorientation, unspecified (principal); K72.90 Hepatic failure, unspecified without coma; N18.6 End stage renal disease; Z88.5 Allergy status to narcotic agent
CPT/HCPCS: 36415; 70450; 71045; 80053; 80305; 81001; 81025; 82140; 82550; 82948; 84484; 85025; 85610; 85730; 93005; 96374; 96375; 96376; 99285; G0480; G0482; J2060; J3411; Q0092